=== PATIENT | male | born 1975 | race Caucasian/White ===

== ENCOUNTER → 2023-08-25 10:20 | Outpatient (REF) | payer OTHER, SELFPAY | LOC: RAD 10:20 | PROVIDERS: ATTENDING PHYSICIAN Internal Medicine Cardiovascular Disease | DX: R93.1 Abnormal findings on diagnostic imaging of heart and coronary circulation (principal); I25.10 Atherosclerotic heart disease of native coronary artery without angina pectoris; I42.1 Obstructive hypertrophic cardiomyopathy | CPT/HCPCS: 75574; Q9967 ==

== ENCOUNTER 2023-09-02 06:10 | Day surgery (SDC) | payer OTHER, SELFPAY ==
[2023-08-31 08:00] VITALS: BMI 38.0
[2023-08-31 08:27] LABS: % Basophils 1.1 % (0-2); % Eosinophils 2.9 % (0-6); % Immature Granulocytes 0.7 % (0-0.5); % Lymphocytes 31.6 % (20.5-51.1); % Monocytes 8.3 % (1.7-9.3); % Neutrophils 55.4 % (42.2-75.2); Absolute Basophils 0.1 10^3/uL (0-0.2); Absolute Eosinophils 0.2 10^3/uL (0-0.7); Absolute Immature Granulocytes 0.1 10^3/uL (0-0.05); Absolute Lymphocytes 2.3 10^3/uL (1.2-3.4); Absolute Monocytes 0.6 10^3/uL (0.1-0.6); Hematocrit 47.4 % (39.0-52.0); Hemoglobin 16.9 g/dL (13.0-18.0); Mean Corp Hgb Conc. 35.7 g/dL (33.0-37.0); Mean Corpuscular Hgb 30.2 pg (27.0-31.0); Mean Corpuscular Volume 84.6 fL (80.0-94.0); Mean Platelet Volume 10.5 fL (7.4-10.4); Nucleated Red Blood Cells % 0 % (-); Platelet Count 223 10^3/uL (130-400); Red Cell Dist. Width 12.2 % (11.5-14.5); White Blood Cell Count 7.2 10^3/uL (4.8-10.8)
[2023-08-31 09:17] LABS: ALT (SGPT) 104 U/L (0-50); AST (SGOT) 82 U/L (17-59); Albumin 4.9 g/dl (3.5-5.0); Alkaline Phosphatase 68 U/L (38-126); Blood Urea Nitrogen 11 mg/dl (9-20); Calcium 10.1 mg/dl (8.4-10.2); Carbon Dioxide 24 mmol/L (22-30); Chloride 98 mmol/L (98-107); Estimated Creatinine Clearance > 125 ml/min; Glucose 285 mg/dl (70-99); Potassium 4.5 mmol/L (3.5-5.1); Sodium 135 mmol/L (135-145); Total Bilirubin 1.9 mg/dl (0.2-1.3); Total Protein 7.8 g/dl (6.3-8.2); eGFR > 60.00
--- NOTE | 2023-08-31 09:39 | HPS.HSE ---
Family Physician
-
Family Physician: Barbara Rendon
Chief Complaint
-
Abnormal calcium score. Angina pectoris. Coronary artery disease.
History of Present Illness
The patient is a 48 year old male presenting today with coronary artery disease. He was hospitalized in March 2014 with complaints of significant chest discomfort. A nuclear stress test at that time was noted to be abnormal. Given this,
he would undergo a cardiac catheterization here at [facility] in late March [address] Narciso Campos. His cardiac catheterization demonstrated no obstructive coronary artery disease. He would be advised to start Atorvastatin and to
stop smoking entirely. Atorvastatin would eventually be switched to Rosuvastatin due to elevated transaminases. A coronary calcium score in 04/2022 was also noted to be elevated at 6000; however, motion artifact was noted, which was believed to
falsely elevate his calcium score. Since then, he does report intermittent, 'squeezing' left sided chest discomfort with associated shortness of breath. His chest pain has been ongoing for the last 6 months and can occur even while at rest. His
chest discomfort can last anywhere from '20 minutes to practically a whole day.' A follow-up coronary calcium score on 08/25/2023 was again noted to be elevated at 4697.2, indicating extensive plaque burden. It is recommended he proceed with a left
cardiac catheterization for further evaluation of his chest discomfort. He denies any current complaints today such as shortness of breath at rest, nausea, vomiting, diarrhea, lightheadedness, dizziness, cough, sore throat, or fever.
Medical History
Past Medical History
Past Medical History: Reports Other
Additional Past Medical History:
1. Abnormal calcium score.
2. Angina pectoris.
3. Coronary artery disease.
4. Hypertension.
5. Dyslipidemia.
6. First degree AV block.
7. Left anterior fascicular block.
8. PVCs with palpitations.
9. Nonsustained ventricular tachycardia, on Metoprolol.
10. Mild hypertrophic obstructive cardiomyopathy.
11. Obstructive sleep apnea, compliant with CPAP (setting 13).
12. Non-insulin dependent diabetes, undergoing medication adjustments.
13. Fatty liver disease with elevated transaminases.
14. Nephrolithiasis.
15. Vertigo.
16. Lumbar degenerative disc disease.
17. Sciatica.
18. Left ankle ligament tear, 2012, status post ankle immobilizer for 6 months.
19. Skin cancer, status post MOHS.
20. Obesity, BMI 38.0.
21. Current e-cigarette use.
Past Surgical History: Reports Other
Additional Past Surgical History:
1. Cardiac catheterization.
2. L4-L5, L5-S1, and S1-S2 laminectomy.
3. Lithotripsy.
4. MOHS.
5. [place] teeth extraction.
Social History
Tobacco: Other (Former 1-1 and 1/2 pack per day cigarette smoker who quit cigarette smoking 3 years ago. He currently uses an e-cigarette. )
Alcohol: None
Personal:
Living: With Family (in a 2 story home. )
Family History
Family History: Not pertinent
Allergies / Home Medications
Allergy/Medication List:
Home medications:
1. Amlodipine 5 mg p.o. daily.
2. Aspirin 81 mg p.o. every evening.
3. Glimepiride 1 mg p.o. daily.
4. Metformin 1000 mg p.o. twice a day.
5. Metoprolol Succinate 25 mg p.o. daily.
6. Rosuvastatin 20 mg p.o. every evening.
7. Valsartan 160 mg p.o. every evening.
Allergies: No known allergies.
Adverse reactions: Atorvastatin, Lisinopril, and adhesive tape.
Review of Systems
-
A 12 point ROS was completed and negative except as noted: Yes
Physical Exam
Vital Signs
Blood pressure 128/88. Heart rate 74. Respirations 18. Pulse ox 96% on room air.
Height 6 feet. Weight 127.1 kg. BMI 38.0.
Physical Exam
General: Well Developed, Well Nourished and No Apparent Distress
HEENT: NormoCephalic, Moist mucous membranes, Atraumatic and PERRLA
Respiratory: Clear
Cardiac: Regular Rhythm
GI: Soft, Non Tender, Non Distended and Other (Obese. )
Musculoskeletal: Normal Gait & Station
Skin: Warm and Dry
Neuro: AO x 3 and Nonfocal/grossly intact
Laboratory Results
-
08/31/23 08:12
08/31/23 08:12
Laboratory Results
Total Bilirubin 1.9 mg/dl (0.2-1.3) H 08/31/23 08:12
AST 82 U/L (17-59) H 08/31/23 08:12
ALT 104 U/L (0-50) H 08/31/23 08:12
Alkaline Phosphatase 68 U/L (38-126) 08/31/23 08:12
EKG 08/31/2023: Sinus rhythm with first degree AV block. Left anterior fascicular block. Minimal voltage criteria for LVH, may be normal variant.
Coronary angiography CT 08/25/2023: Markedly elevated calcium score of 4697.2. This indicates extensive plaque burden. There is significant diffuse calcific atherosclerotic disease involving the coronary arteries, with high likelihood for
hemodynamically significant stenoses.
Echocardiogram 08/02/2023: Moderate concentric left ventricular hypertrophy. Preserved/hyperdynamic left ventricular systolic function. Estimated left ventricular ejection fraction is 65%. Mild left atrial enlargement. Mild mitral annular
calcification. Trace mitral, tricuspid, and pulmonic insufficiency. Grade 1 left ventricular diastolic impairment.
Impression/Plan
-
IMPRESSION/PLAN:
1. Abnormal calcium score, angina pectoris, and coronary artery disease: The patient is in need of a left cardiac catheterization with Dr. Narciso Campos on 09/02/2023. The benefits and risks of the procedure have been explained to the patient. The
patient understands these risks and wishes to proceed. He is aware to continue his baby Aspirin daily up to and including the day of his procedure.
2. Non-insulin dependent diabetes: The patient's fasting glucose was noted to be elevated at 285 on 08/31/2023. The patient was previously on weekly Trulicity; however, he has been off this medication for 'several weeks' due to no availability at
several local pharmacies. He notes that he has not tolerated other previous weekly injectables. The patient was advised to contact his primary care physician, Dr. Barbara Rendon, for further medical management immediately. He was advised to
follow a strict carbohydrate controlled diet as well.
[2023-09-02] VITALS (9 sets, daily range): BP systolic 110–125; BP diastolic 60–88; BMI 39.4
[2023-09-02 07:00] LABS: Glucose - Point of Care 318 mg/dl (70-99)
[2023-09-02] MEDS: NSS 395 ML IV (07:01)
[2023-09-02] MEDS: LOW STRENGTH ASPIRIN 81 MG PO (07:02)
--- NOTE | 2023-09-02 08:49 | ITS.CL.CATH ---
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
Cardiac Catheterization
Procedure Report:
CARDIAC CATHETERIZATION REPORT
Date of Procedure: 09/02/2023
Referring: Robert Wolff DO
Indication: Exertional dyspnea with abnormal stress test
HEMODYNAMIC DATA
AO: 122/84
LV: 122/18
LEFT VENTRICULOGRAPHY: Normal left-ventricular wall motion with EF 64%
CORONARY ANGIOGRAPHY
Dominance: Right
Left Main: Normal
LAD: Mild to moderate calcification with 20% proximal stenosis and otherwise diffuse mild luminal irregularities
Circumflex: Mildly ectatic vessel with diffuse mild luminal irregularities
RCA: Dominant vessel with 20% distal stenosis. There are diffuse mild luminal irregularities.
Closure Device: 6 Thai Angio-Seal RFA. Of note, we were unable to obtain access via the right radial artery. The pulse was somewhat diminished but palpable prior to the procedure.
Radiation (mGy): 604
DAP (cm2.Gy): 49.8
Fluoroscopy time: 1.9 minutes
CONCLUSIONS
1: Normal left ventricular wall motion with EF 64%
2: Mild nonobstructive CAD as described-the coronary anatomy is essentially unchanged compared with the prior study from 04/01/2014
3. Continue low-dose aspirin and high intensity statin (goal LDL less than 70) as well as risk factor modification efforts
Copy to: Robert Wolff DO, Barbara Rendon DO
Narciso Campos MD, [facility], [facility]
[2023-09-02 09:09] LABS: Glucose - Point of Care 279 mg/dl (70-99)
== END 2023-09-02 11:38 | disposition home or self-care (01) ==
LOC: CATH 06:10
PROVIDERS: ATTENDING PHYSICIAN Internal Medicine Cardiovascular Disease; FAMILY PHYSICIAN Family Medicine; OTHER PHYSICIAN Internal Medicine Cardiovascular Disease
DX: I25.10 Atherosclerotic heart disease of native coronary artery without angina pectoris (principal); R06.09 Other forms of dyspnea; R94.39 Abnormal result of other cardiovascular function study; I10 Essential (primary) hypertension; E78.5 Hyperlipidemia, unspecified; I44.0 Atrioventricular block, first degree; I42.1 Obstructive hypertrophic cardiomyopathy; E11.9 Type 2 diabetes mellitus without complications; G47.33 Obstructive sleep apnea (adult) (pediatric); E66.9 Obesity, unspecified; Z68.38 Body mass index [BMI] 38.0-38.9, adult; F17.290 Nicotine dependence, other tobacco product, uncomplicated; Z85.828 Personal history of other malignant neoplasm of skin; Z79.82 Long term (current) use of aspirin; Z79.84 Long term (current) use of oral hypoglycemic drugs
CPT/HCPCS: C1894; 36415; 80053; 82962; 85025; 93005; 93458; C1760; Q9967